=== PATIENT | male | born 1980 | race Caucasian/White ===

== ENCOUNTER → 2017-11-08 | Outpatient (REF) | payer OTHER | LOC: M LAB REF 16:43 | PROVIDERS: ATTEND Physician Assistant Medical | DX: Z20.2 Contact with and (suspected) exposure to infections with a predominantly sexual mode of transmission (principal) ==

== ENCOUNTER 2019-05-21 11:08 | Emergency (ER) | payer MEDICAID, OTHER ==
[~2019-05-21] VITALS: Ht 188 cm; Wt 93.5 kg
[2019-05-21 12:45] LABS: HEMATOCRIT 44.2 % (42.0-52.0); HEMOGLOBIN 14.7 g/dl (13.5-17.5); MEAN CORPUSCULAR HEMOGLOBIN 29.5 pg (27.0-33.0); MEAN CORPUSCULAR HGB CONC 33.3 g/dl (32.0-36.5); MEAN CORPUSCULAR VOLUME 88.8 fl (80.0-96.0); PLATELET COUNT, AUTOMATED 205 10^3/uL (150-450); RED BLOOD COUNT 4.98 10^6/uL (4.30-6.10); WHITE BLOOD COUNT 7.9 10^3/uL (4.0-10.0)
[2019-05-21 13:02] LABS: BLOOD UREA NITROGEN 11 MG/DL (7-18); CALCIUM LEVEL 9.3 MG/DL (8.5-10.1); CARBON DIOXIDE LEVEL 30 MEQ/L (21-32); CHLORIDE LEVEL 104 MEQ/L (98-107); CREATININE FOR GFR 0.97 MG/DL (0.70-1.30); GLOMERULAR FILTRATION RATE > 60.0 (>60); GLUCOSE, FASTING 102 MG/DL (70-100); POTASSIUM SERUM 3.4 MEQ/L (3.5-5.1); SODIUM LEVEL 139 MEQ/L (136-145)
--- NOTE | 2019-05-21 13:39 | REP ---
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 Findings: The left and right internal jugular, axillary, brachial, basilic, and cephalic veins are anechoic and compressible in the left upper extremity. Color flow imaging is homogeneous. Spectral Doppler interrogation is unremarkable. There is no evidence of left or right upper extremity venous thrombosis. Impression: Negative bilateral upper extremity duplex venous ultrasound. No evidence of venous thrombosis. Electronically Signed by Braxton Quezada MD 05/21/2019 01:31 P
--- NOTE | 2019-05-21 14:00 | REP ---
The bilateral forearms soft tissue ultrasound: Right forearm: There are two palpable lumps in the right forearm one just distal to the elbow along the anterior surface of the forearm and the other palpable lump is just distal to this. The lump just distal to the elbow demonstrates a nonocclusive thrombus in the basilic vein just distal to the elbow. The vein is patent. The second lump in the right forearm is distal to the previous lump in the anterior mid forearm. There is hyperechoic material surrounding the basilic vein. However, there is no thrombus within the vein at this level. The hyperechoic material sis nonspecific and could be inflammation or could be injected material. Left forearm: There are two palpable lumps one just distal to the elbow medially in the the forearm and the second lump is just distal to this. The lump just distal to the elbow medially demonstrates hyperechoic material surrounding the basilic vein. There is no thrombus in the basilic vein. The second lump just distal to the first lump also demonstrates hyperechoic material surrounding the basilic vein. The basilic vein is patent without thrombus. The hypo echoic material surrounding the basilic vein at the these levels is nonspecific and could represent injected material or inflammation. Electronically Signed by Erlin Archibald MD 05/21/2019 01:52 P
[2019-05-21] MEDS ORDERED: POTASSIUM CHLORIDE 10 MEQ SR TABLET PO ONE (14:15)
[2019-05-21] MEDS ORDERED: BACT800T5 PO (14:18)
[2019-05-21 14:26] VITALS: BP 110/81
== END 2019-05-21 14:28 | disposition home or self-care (01) ==
LOC: M ED 11:08
DX: R22.9 Localized swelling, mass and lump, unspecified (principal); F15.920 Other stimulant use, unspecified with intoxication, uncomplicated; E87.6 Hypokalemia; B18.2 Chronic viral hepatitis C; Z88.6 Allergy status to analgesic agent

== ENCOUNTER 2021-11-14 05:49 | Emergency (ER) | payer BC, MEDICAID, OTHER ==
[~2021-11-14] VITALS: Ht 188 cm; Wt 96.4 kg
[~2021-11-14 05:49] MED LIST: BACT800T5 PO
[2021-11-14 09:23] LABS: BASO % 0.3 % (0.0-1.0); EOS % 0.7 % (0.0-3.0); HEMOGLOBIN 12.4 g/dl (13.5-17.5); LYMPH # 1.3 10^3/uL (1.5-5.0); LYMPH % 22.4 % (24.0-44.0); MEAN CORPUSCULAR HEMOGLOBIN 28.3 pg (27.0-33.0); MEAN CORPUSCULAR HGB CONC 31.8 g/dl (32.0-36.5); MONO # 0.7 10^3/uL (0.0-0.8); MONO % 11.4 % (2.0-8.0); NEUTROPHILS # 3.8 10^3/uL (1.5-8.5); PLATELET COUNT, AUTOMATED 176 10^3/uL (150-450); RED BLOOD COUNT 4.38 10^6/uL (4.30-6.10); WHITE BLOOD COUNT 5.8 10^3/uL (4.0-10.0)
[2021-11-14 09:31] LABS: BLOOD UREA NITROGEN 12 MG/DL (7-18); C REACTIVE PROTEIN QUANTITATIV 1.92 MG/DL (0.00-0.30); CALCIUM LEVEL 8.7 MG/DL (8.5-10.1); CARBON DIOXIDE LEVEL 31 MEQ/L (21-32); CHLORIDE LEVEL 106 MEQ/L (98-107); CREATININE FOR GFR 0.82 MG/DL (0.70-1.30); GLOMERULAR FILTRATION RATE > 60.0 (>60); GLUCOSE, FASTING 93 MG/DL (70-100); POTASSIUM SERUM 3.7 MEQ/L (3.5-5.1); SODIUM LEVEL 140 MEQ/L (136-145)
[2021-11-14 10:06] LABS: ERYTHROCYTE SEDIMENTATION RATE 33 mm/hr (0-15)
[2021-11-14] MEDS ORDERED: DALBAVANCIN 1,500 MG in D5W 250 ML IV ONE (11:00)
[2021-11-14 11:15] VITALS: BP 135/80
== END 2021-11-14 11:21 | disposition home or self-care (01) ==
LOC: M ED 05:49
DX: L03.116 Cellulitis of left lower limb (principal); Z86.19 Personal history of other infectious and parasitic diseases; F17.200 Nicotine dependence, unspecified, uncomplicated; F19.10 Other psychoactive substance abuse, uncomplicated; Z88.6 Allergy status to analgesic agent
CPT/HCPCS: 80048; 85025; 85652; 86140; 87040; 93971; 96365; 99284; J0875

== ENCOUNTER 2021-11-21 13:36 | Emergency (ER) | payer BC, OTHER ==
[~2021-11-21] VITALS: Ht 188 cm; Wt 97.7 kg
[2021-11-21 13:37] VITALS: BP 116/71
== END 2021-11-21 16:04 | disposition left against medical advice (07) ==
LOC: M ED 13:36
DX: Z53.21 Procedure and treatment not carried out due to patient leaving prior to being seen by health care provider (principal)

== ENCOUNTER 2023-01-11 13:23 | Emergency (ER) | payer BC, OTHER ==
[~2023-01-11] VITALS: Ht 188 cm; Wt 106.8 kg
[2023-01-11] MEDS ORDERED: PERCOCET 5MG/325MG TAB PO ONE (13:45)
[2023-01-11] MEDS ORDERED: LIDOCAINE 2% MDV 20ML VIAL SC ONE (14:15)
[2023-01-11] MEDS ORDERED: BOOSTRIX/ADACEL VACCINE (DIPHTH/PERTUSS/ACELL/TETANUS) 0.5ML SYR IM ONE (14:20)
[2023-01-11 15:18] VITALS: BP 142/92
== END 2023-01-11 15:55 | disposition home or self-care (01) ==
LOC: M ED 13:23
DX: S61.011A Laceration without foreign body of right thumb without damage to nail, initial encounter (principal); W26.8XXA Contact with other sharp object(s), not elsewhere classified, initial encounter; Y92.099 Unspecified place in other non-institutional residence as the place of occurrence of the external cause; F17.200 Nicotine dependence, unspecified, uncomplicated; F19.10 Other psychoactive substance abuse, uncomplicated; Z88.6 Allergy status to analgesic agent

== ENCOUNTER 2023-03-26 01:25 | Emergency (ER) | payer MEDICAID, OTHER ==
[~2023-03-26] VITALS: Ht 188 cm; Wt 106.8 kg
[2023-03-26 01:25] VITALS: BP 123/82
== END 2023-03-26 04:16 | disposition left against medical advice (07) ==
LOC: M ED 01:25
DX: Z53.21 Procedure and treatment not carried out due to patient leaving prior to being seen by health care provider (principal)

== ENCOUNTER 2023-03-26 22:37 | Emergency (ER) | payer OTHER ==
[~2023-03-26] VITALS: Ht 188 cm; Wt 106.0 kg
[2023-03-26 22:44] VITALS: BP 141/77
[2023-03-26] MEDS ORDERED: ACETAMINOPHEN 500 MG TAB PO ONE (23:00)
[2023-03-27 02:28] LABS: BASO % 0.1 % (0.0-1.0); EOS % 0.2 % (0.0-3.0); HEMATOCRIT 35.1 % (42.0-52.0); HEMOGLOBIN 11.6 g/dl (13.5-17.5); LYMPH # 0.9 10^3/uL (1.5-5.0); LYMPH % 9.5 % (24.0-44.0); MEAN CORPUSCULAR HEMOGLOBIN 28.4 pg (27.0-33.0); MONO # 0.9 10^3/uL (0.0-0.8); MONO % 9.5 % (2.0-8.0); NEUTROPHILS # 7.7 10^3/uL (1.5-8.5); NEUTROPHILS % 80.3 % (36.0-66.0); PLATELET COUNT, AUTOMATED 163 10^3/uL (150-450); RED BLOOD COUNT 4.08 10^6/uL (4.30-6.10); WHITE BLOOD COUNT 9.5 10^3/uL (4.0-10.0)
[2023-03-27] MEDS ORDERED: DALBAVANCIN 1,500 MG in D5W 250 ML IV ONE (02:35)
[2023-03-27 02:51] LABS: BLOOD UREA NITROGEN 13 MG/DL (9-23); CARBON DIOXIDE LEVEL 25 MMOL/L (20-31); CHLORIDE LEVEL 102 MMOL/L (98-107); CREATININE FOR GFR 0.71 MG/DL (0.70-1.30); GLOMERULAR FILTRATION RATE > 60.0 (>60); GLUCOSE, FASTING 98 MG/DL (60-100); SODIUM LEVEL 135 MMOL/L (136-145)
[2023-03-27] MEDS ORDERED: NS 1,000 ML IV ONE (03:00)
== END 2023-03-27 05:30 | disposition home or self-care (01) ==
LOC: M ED 22:37
DX: L03.119 Cellulitis of unspecified part of limb (principal); Z86.19 Personal history of other infectious and parasitic diseases; F19.10 Other psychoactive substance abuse, uncomplicated; F17.200 Nicotine dependence, unspecified, uncomplicated; Z88.6 Allergy status to analgesic agent
CPT/HCPCS: 80048; 83605; 85025; 96365; 99284; J0875